=== PATIENT | male | born 1955 | race Caucasian/White ===

== ENCOUNTER 2016-11-13 02:29 | Inpatient (IN) | payer OTHER ==
[~2016-11-13] VITALS: Ht 190.5 cm; Wt 121.6 kg
[~2016-11-13 02:29] MED LIST: ADULT LOW DOSE81 MG PO; COQ-1030 MG PO; FERROUS SULFAT325 M3 PO; MOBIC15 M1 PO; SENOKOT8.6 M2 PO; TOPROL XL25 M1 PO
--- NOTE | 2016-11-13 16:20 | Admission Core Measures ---
Admission Meds I reviewed the following Meds: Current Medications Sig/Beata Start time Last Medication Dose Stop Time Status Admin Vancomycin HCl 1,000 MG ONCE 11/13 0000 NR Sodium Chloride 250 ML 11/139 (Normal Saline 0.9%) Acute Coronary Syndrome Inclusion Criteria ACS Diagnosis No Inpatient Core Measures LDL Reminder: If No, please order W/I first 24hr of stay Congestive Heart Failure Inclusion Criteria CHF Diagnosis No Cerebrovascular accident Inclusion Criteria CVA/TIA Diagnosis No Inpatient Core Measures Bedside Swallow Eval Reminder: If BSE failed, place ST order Antithrombotic Reminder: Order Antithrombotic Medication by end of day 2 Antithrombotic Reminder: Document Reason Antithrombotic Not ordered by end of day 2 AFIB/Flutter Reminder: If Present, add to problem list AFIB/Flutter Reminder: Order Anticoag Medication for pts with AFIB/Flutter Atherosclerosis Reminder: If Present, add to problem list LDL Reminder: If No, please order W/I first 24hr of stay PT Order Reminder: If No, please order Venous thromboembolism Inpatient Core Measures VTE Risk Factors: Age > 40, Surgery No [facility] VTE prophylaxis d/t No contraindications No VTE Pharm Prophylaxis d/t No contraindications Inclusion Criteria - Per Current guidelines, there needs to be overlap - treatment for the first 5 days of Warfarin therapy. - Parenteral Anticoagulation (IV or SC) needs to be - given along with Warfarin therapy. VTE Diagnosis No VTE Type NONE VTE Confirmed by (Test) NONE Problem List As ranked by this Provider includes Assessment & Plan 1. S/P total hip arthroplasty HOME MEDS Home Med List Aspirin (Adult Low Dose Aspirin EC) 81 MG TABLET.DR 1 PO D HEART iSpye ( Reported) Ferrous Sulfate 325 MG (65 MG IRON) TABLET 1 TAB PO BID SUPP (Reported) Meloxicam (Mobic) 15 MG TABLET 1 TAB PO DAILY PAIN (Reported) Metoprolol Succ XL (Toprol XL) 25 MG TAB 1 TAB PO DAILY BP (Reported) Sennosides (Senokot) 8.6 MG TABLET 1 TAB PO BID BM (Reported) Ubidecarenone (Coq-10) 30 MG CAPSULE 1 PO D SUPP (Reported)
--- NOTE | 2016-11-13 17:17 | RADIOLOGY REPORT ---
EXAMINATION: XR HIP, RIGHT CLINICAL INFORMATION: Status post right total hip replacement COMPARISON: None TECHNIQUE: Single view of the right hip. FINDINGS: Prosthetic components of the right total hip arthroplasty are appropriately aligned. No periprosthetic fracture. Gas from recent surgery is present in the surrounding soft tissues. IMPRESSION: Normal postoperative appearance of the right total hip prosthesis.
[2016-11-13 18:30] VITALS: BP 106/60
--- NOTE | 2016-11-13 20:08 | NUR ---
PT UP TO FLOOR AT 1815. PT DORWSY AROUSABLE. PAIN MILD PER PT. + CMS TO BLE . DRSG TO R HIP C/D/I. IVF INFUSING PER EMAChris. DAT TO BSD. CALL RODRIGUEZ USE INSTRUCTED. PT HR 52 PER REPORT PT HR RUNS ON LOW SIDE. PT CONFIRMED LOW HR ISSUES. WILL MONITOR
[2016-11-13 20:25] VITALS: BP 130/80
[2016-11-13 22:55] VITALS: BP 130/70
[2016-11-14 01:20] VITALS: BP 126/80
[2016-11-14 04:45] VITALS: BP 134/82
[2016-11-14 08:04] LABS: ABSOLUTE BASOPHIL COUNT 0 /CUMM (0.0-0.2); ABSOLUTE EOSINOPHIL COUNT 0.1 /CUMM (0.0-0.7); ABSOLUTE GRANULOCYTE CT 6.4 /CUMM (1.4-6.5); ABSOLUTE LYMPH COUNT 1.2 /CUMM (1.2-3.4); ABSOLUTE MONOCYTE COUNT 0.8 /CUMM (0.10-0.60); BASOPHIL % 0.4 % (0.0-2.0); EOSINOPHIL % 1.4 % (0-5); GRANULOCYTE % 74.6 % (42.2-75.2); HEMATOCRIT 34.8 % (42-52); MEAN CORPUSCULAR HGB 30.3 PG (27.0-31.0); MEAN CORPUSCULAR HGB CONC 33.7 G/DL (33.0-37.0); MEAN CORPUSCULAR VOLUME 89.9 FL (80.0-94.0); MEAN PLATELET VOLUME 8.5 FL (7.4-10.4); PLATELET COUNT 172 /CUMM (130-400); RBC DISTRIBUTION WIDTH 14.2 % (11.5-14.5); RED BLOOD CELL CT 3.87 /CUMM (4.70-6.10); WHITE BLOOD CELL COUNT 8.6 /CUMM (4.8-10.8)
--- NOTE | 2016-11-14 08:12 | PN- Orthopedic ---
See Addendum Subjective Subjective: Patient's preoperative right groin pain is gone, he has lateral hip pain which is moderate and complaints of back spasming and tightness mostly left lower back. He denies any fever or chills. No chest pain or shortness of breath. Objective Vital Signs and I&Os Vital Signs Date Time Temp Pulse Resp B/P B/P Pulse O2 O2 Flow FiO2 Mean Ox Delivery Rate 11/14 0445 98.1 60 16 134/82 98 Nasal 2.0L Cannula 11/14 0120 98.2 60 18 126/80 97 Nasal 2.0L Cannula 11/14 0000 Nasal 2.0L Cannula 11/13 2255 98.1 63 20 130/70 96 Room Air 11/13 2024 96.7 54 20 130/80 98 Nasal 3.0L Cannula 11/13 2000 Nasal 2.0L Cannula 11/13 1830 96.7 52 16 106/60 94 Nasal 2.0L Cannula Intake & Output 11/14 1600 11/14 0800 11/14 0000 11/13 1600 11/13 0800 11/13 0000 Intake Total 1000 550 Output Total 850 Balance 150 550 Intake, IV 800 450 Intake, Oral 200 100 Output, Urine 850 Patient 268 lb Weight Weight Reported by Patient Measurement Method Physical Exam: Well-developed well-nourished no apparent distress. HEENT: Atraumatic, extraocular motion intact Neck: Supple, no lymphadenopathy Respiratory: No respiratory distress Extremities: No edema RIGHT lower extremity hip dressing in place, Dressing clean dry and intact Mild thigh edema No signs of infection. No shortening or rotation Hip range of motion is limited and without unexpected pain. Abduction pillow in place Neurovascularly intact distally Bilateral calves are supple, nontender. Neuro: Alert and oriented x3 Psych: Mood affect normal, normal memory normal judgment. Skin: Warm and dry, no rash on exposed skin Results Last 48 Hours of Labs: Laboratory Tests 11/14 0650 Chemistry Sodium (137 - 145 mmol/L) 135 L Potassium (3.5 - 5.1 mmol/L) 4.0 Chloride (98 - 107 mmol/L) 104 Carbon Dioxide (22 - 30 mmol/L) 23 Anion Gap (5 - 16) 8 BUN (9 - 20 mg/dL) 10 Creatinine (0.7 - 1.2 mg/dL) 0.7 Estimated GFR (>60 ml/min) > 60 BUN/Creatinine Ratio (7 - 25 %) 14.3 Coagulation PT Pending INR Pending Hematology CBC w Diff Pending WBC Pending RBC Pending Hgb Pending Hct Pending MCV Pending MCH Pending RDW Pending Plt Count Pending MPV Pending PUBS MCHC Pending Assessment/Plan Assessment/Plan Postoperative day #1 status post right total hip arthroplasty Out of bed, weightbearing as tolerated w physical therapy. Perioperative antibiotics completed Continue pain medication as needed, add Robaxin for muscle spasm when necessary. Coumadin for DVT prophylaxis. Awaiting INR this morning, dose depending on INR. Goal:2-3 abduction pillow while in bed Following morning labs. ALPS Blair catheter removed this morning, await spontaneous voiding DC IV fluids Dressing change tomorrow Core Measures/Miscellaneous Venous Thromboembolism VTE Risk Factors: Age > 40, Surgery VTE Contraindications: No Contraindications VTE Diagnosis: No VTE Type: NONE VTE Confirmed by (Test): NONE Beta Viviana Is Beta Viviana a Home Med? No Antibiotics Is Patient on Antibiotics? No
[2016-11-14 08:49] LABS: PT 11.7 SEC (9.4-12.5)
[2016-11-14 09:10] VITALS: BP 122/86
[2016-11-14 12:20] VITALS: BP 136/70
[2016-11-14 16:05] VITALS: BP 132/80
--- NOTE | 2016-11-14 19:45 | Operative Report ---
Operative/Inv Procedure Report Surgery Date: 11/13/16 Name of Procedure: Right total hip arthroplasty Pre-Operative Diagnosis: Right hip primary osteoarthritis Post-Operative Diagnosis: Same Estimated Blood Loss: 200cc Surgeon/Enamel Buffer: GLADIS STARR,Karen CHAMBERLAIN Anesthesia: general endotracheal tube Implants: [place] secure fit femoral stem size 8, Trident acetabulum size 56, 36+0 femoral head Biolox Drains: None Specimens: Femoral head and acetabular reamings Microbiology: Urine Complications: None Condition: Stable Operative Indication: Patient is a 61-year-old man with severe end-stage osteoarthritis of the right hip. Hip causes significant compromise of his normal activities of daily living. He underwent conservative management for. At time but had minimal improvement. He wished to proceed with total hip arthroplasty after risks, benefits and expectations of surgical procedure which included but were not limited to persistent hip pain, need for subsequent surgery, infection, DVT, injury to blood vessel or nerve, leg length discrepancy, dislocation and anesthesia risks Operative/Procedure Note Note: Patient was brought to the operating room and transferred to the operating table. Once under appropriate anesthesia the patient was placed into a left lateral decubitus position with right side up. All bony prominences were well- padded. An axillary Roll was placed in standard fashion. The right lower extremity was prepped and draped in standard fashion. Preoperative IV antibiotic's were given prophylactically. A standard lateral incision was used for anticipated superior approach of the hip. Incision was taken down sharply to the underlying fascia. The fascia was incised in line with the skin incision. The hip was internally rotated placing the external rotators on tension. I then dissected the piriformis off of the insertion site and reflected posteriorly for later repair. The interval between the gluteus minimus tendon and the superior capsule was identified and a retractor was placed in this interval. Inferior retractor was placed as well. I then incised the capsule and reflected a central portion of the capsule posteriorly for later repair. Superior and inferior portions of the capsule were excised. Hip was dislocated. Measurements were taken between intertrochanteric line to the center the femoral head in order to reproduce patient's leg lengths. Femoral neck cut was made based on preoperative templating and intraoperative measurements. Femoral head was removed. There was severe degenerative changes of the femoral head and the articular cartilage. I then placed retractors along the anterior acetabulum as well as inferior acetabulum. Remnants of the degenerative labral tissues were excised. All remaining soft tissues in the acetabular fossa were removed. Copious irrigation followed. I then started reaming with a size 48 and reamed up to a size 55 for anticipated insertion of a size 56 acetabulum. I use a size 54 trial to confirm circumferential reaming. After copious irrigation I impacted the definitive size 56 acetabular component with the appropriate anteversion and abduction. I was satisfied with the scratch fit. I then placed 2 6.5 mm screws in the safe zone. After irrigating the acetabular fossa I placed the definitive liner to accept a 36 m femoral head. Locking mechanism was confirmed. I placed a lap sponge to protect the acetabular liner during preparation of the femur. Femur was then internally rotated 90 and forward flexed about 60. Retractors were placed underneath the proximal femur to deliver the femur out of the wound. I then use a ox osteotome to lateralize my insertion site. This was followed by hand reamers. I approached up to a size 8. I was satisfied with this size at this point. Excellent scratch fit. I did a closed reduction with a 36+0 femoral head. This restored patient's leg lengths and provided excellent stability. No evidence of anterior instability with simultaneous extension or external rotation. No evidence of posterior stability with simultaneous internal rotation adduction and forward flexion to 90. I then removed all the trial components. Copious irrigation of the femoral canal followed. I then impacted the definitive size 8 secure fit femoral stem in position matching the version of the previously placed and removed broach. The trunnion was dried and then a definitive 36+0 femoral head was impacted in place and the locking mechanism was confirmed. I used a Biolox femoral head. Hip was reduced and again the stability was confirmed. After copious irrigation and copious irrigation was followed every level of closure. The capsule piriformis were repaired. Fascia was closed with interrupted #1 Vicryl suture. Subcutaneous tissues closed in 2 layers with 2-0 Vicryl and skin was closed with rupal. Appropriate just his were applied and patient was awakened and taken to recovery room in good condition. No intraoperative complications. Blood loss approximately 200 mL Discharge Disposition: PACU
[2016-11-14 20:27] VITALS: BP 140/80
[2016-11-15 07:31] VITALS: BP 140/60
--- NOTE | 2016-11-15 08:00 | PN- Orthopedic ---
See Addendum Subjective Subjective: The patient seen this morning postoperatively day #2. He reports his pain is under adequate control and is complaints at the current time. Objective Vital Signs and I&Os Vital Signs Date Time Temp Pulse Resp B/P B/P Pulse O2 O2 Flow FiO2 Mean Ox Delivery Rate 11/15 0731 99.3 79 20 140/60 94 Room Air 11/14 2027 99.4 75 20 140/80 95 Room Air 11/14 1605 99.0 74 20 132/80 95 Room Air 11/14 1220 99.3 74 20 136/70 95 11/14 1050 Room Air Room Air 11/14 0910 99.4 73 20 122/86 95 11/14 0800 Nasal 2.0L Cannula Intake & Output 11/15 0800 11/15 0000 11/14 1600 11/14 0800 11/14 0000 11/13 1600 Intake Total 523 342 9246 550 Output Total 1675 760 800 850 Balance -1435 -760 -200 150 550 Intake, IV 800 450 Intake, Oral 240 600 200 100 Output, Urine 1675 760 800 850 Patient 268 lb Weight Weight Reported by Patient Measurement Method Physical Exam: Gen.: Alert and in no obvious distress Skin: Warm and dry Extremities: Bilateral lower extremities are warm without calf tenderness or significant edema. Gross motor and sensory are intact. Right hip surgical dressing was changed and incision was clean, dry, and intact without signs of infection. Surgical clips were in place. Assessment/Plan Assessment/Plan Assessment: 61-year-old male status post right total hip otoplasty postoperative day #2. The patient is progressing as expected and his pain is under adequate control. Plan: Out of bed with physical therapy Follow-up morning laboratory studies and dose Coumadin for an INR between 2 and 3 Continue current pain regiment Daily dry dressing change GI and DVT prophylaxis Incentive spirometry Probable discharge tomorrow Core Measures/Miscellaneous Venous Thromboembolism VTE Risk Factors: Age > 40, Surgery VTE Contraindications: No Contraindications VTE Diagnosis: No VTE Type: NONE VTE Confirmed by (Test): NONE Beta Viviana Is Beta Viviana a Home Med? No Antibiotics Is Patient on Antibiotics? No
[2016-11-15 08:09] LABS: ABSOLUTE BASOPHIL COUNT 0 /CUMM (0.0-0.2); ABSOLUTE EOSINOPHIL COUNT 0.1 /CUMM (0.0-0.7); ABSOLUTE GRANULOCYTE CT 6.5 /CUMM (1.4-6.5); ABSOLUTE LYMPH COUNT 1.4 /CUMM (1.2-3.4); ABSOLUTE MONOCYTE COUNT 1.2 /CUMM (0.10-0.60); BASOPHIL % 0.4 % (0.0-2.0); EOSINOPHIL % 1.6 % (0-5); GRANULOCYTE % 70.2 % (42.2-75.2); HEMATOCRIT 33.4 % (42-52); MEAN CORPUSCULAR HGB 30.2 PG (27.0-31.0); MEAN CORPUSCULAR HGB CONC 33.9 G/DL (33.0-37.0); MEAN PLATELET VOLUME 8.9 FL (7.4-10.4); PLATELET COUNT 163 /CUMM (130-400); RBC DISTRIBUTION WIDTH 13.7 % (11.5-14.5); RED BLOOD CELL CT 3.75 /CUMM (4.70-6.10); WHITE BLOOD CELL COUNT 9.2 /CUMM (4.8-10.8)
[2016-11-15 08:15] LABS: PT 14.9 SEC (9.4-12.5)
--- NOTE | 2016-11-15 13:46 | NUR ---
PT C/O WORSENING BLE EDEMA, PT STATES HE CANT WORK WITH PT , IT HURTS TO WALK ON THEM, PA PARI PAYNE, PA TO COME SEE PT
[2016-11-15 14:00] VITALS: BP 150/76
--- NOTE | 2016-11-15 14:00 | NUR ---
PT C/O PAIN IN BLE, PT REFUSE PAIN MEDS, CONTINUE TO MONITOR, KVNG YAÑEZ CALLED AGAIN TO SEE PT
--- NOTE | 2016-11-15 15:00 | NUR ---
[facility] COMMISSION CLERK AT BEDSIDE PER PT'S REQUEST, CONCERNED PT WILL HAVE TO GO TO [facility], IF PT NOT SEEN BY PHYSICAL THERAPY TODAY TO WALK PT LEAVES BY 1529, WANTS HIM SEEN LATER TODAY. IV LASIX GIVEN PER PA
--- NOTE | 2016-11-15 22:25 | NUR ---
ORAL TEMP AT THIS TIME 100.0 CALL PLACED TO SURGICAL PA TO MAKE AWARE
[2016-11-15 22:40] VITALS: BP 140/64
[2016-11-16 06:07] VITALS: BP 134/70
[2016-11-16 08:13] LABS: ABSOLUTE BASOPHIL COUNT 0 /CUMM (0.0-0.2); ABSOLUTE EOSINOPHIL COUNT 0.1 /CUMM (0.0-0.7); ABSOLUTE GRANULOCYTE CT 7.6 /CUMM (1.4-6.5); ABSOLUTE LYMPH COUNT 1.3 /CUMM (1.2-3.4); ABSOLUTE MONOCYTE COUNT 1.3 /CUMM (0.10-0.60); BASOPHIL % 0.5 % (0.0-2.0); GRANULOCYTE % 73.2 % (42.2-75.2); HEMATOCRIT 33.2 % (42-52); MEAN CORPUSCULAR HGB 30.5 PG (27.0-31.0); MEAN CORPUSCULAR HGB CONC 33.8 G/DL (33.0-37.0); MEAN CORPUSCULAR VOLUME 90.3 FL (80.0-94.0); PLATELET COUNT 160 /CUMM (130-400); RED BLOOD CELL CT 3.67 /CUMM (4.70-6.10); WHITE BLOOD CELL COUNT 10.4 /CUMM (4.8-10.8)
[2016-11-16 08:14] LABS: PT 15.5 SEC (9.4-12.5)
--- NOTE | 2016-11-16 08:44 | PN- Orthopedic ---
Subjective Subjective: Patient reporting improvement in discomfort to bilateral feet/ankles since starting mobic. States that he feels is toe range of motion is markedly improved but notes some residual discomfort when ranging bilateral ankles. States that incisional discomfort is minimal. Denies chest pain, shortness of breath and difficulty breathing. Has been voiding. Has been tolerating diet with no nausea or vomitting. Has yet to ambulate on stairs with pt, anticipates that today. Objective Vital Signs and I&Os Vital Signs Date Time Temp Pulse Resp B/P B/P Pulse O2 O2 Flow FiO2 Mean Ox Delivery Rate 11/16 0607 99.6 79 20 134/70 93 Room Air 11/15 2240 100.0 78 20 140/64 95 Room Air 11/15 1400 99.8 74 20 150/76 95 Room Air Intake & Output 11/16 1600 11/16 0800 11/16 0000 11/15 1600 11/15 0800 11/15 0000 Intake Total 600 240 Output Total 1180 310 847 0638 760 Balance -1180 -380 -350 -1435 -760 Intake, Oral 600 240 Output, Urine 1180 378 747 5000 760 Physical Exam: General: Alert and oriented x3, no acute distress Cardiac: RRR, s1s2 Pulm: C T A bilaterally Abdomen: Obese, non-tender, non-distended Extremties: Moves all extremities, resistant to ankle ROM to bilateral lower extremities but able to plantar and dorsiflex toes bilaterally. Tender to palpation of metatarsal heads bilaterally and calcaneous on left lower extremities, no redness or excessive warmth, swelling noted but no pitting edema. Bialteral calves soft and non-tender. Surgical site: Right hip: Dressing dry and intact, thigh compartments soft. No resting internal or external rotation of right leg. Assessment/Plan Assessment/Plan This is a 61 year old male, POD 3, s/p right thr for osteoarthrits. Meloxicam started one day ago for foot and ankle swelling/pain with good effect. PMH significant for cabg, gout -PT to eval today, trial stairs, str vs home -Probable dc later this afternoon -Contiue current pain regimen -Continue dvt ppx with coumadin, dose per inr, target inr 2-3 -Continue meloxicam, 7.5 daily -Will d/w Dr. Barnes Core Measures/Miscellaneous Venous Thromboembolism VTE Risk Factors: Age > 40, Surgery VTE Contraindications: No Contraindications VTE Diagnosis: No VTE Type: NONE VTE Confirmed by (Test): NONE Beta Viviana Is Beta Viviana a Home Med? No Antibiotics Is Patient on Antibiotics? No
--- NOTE | 2016-11-16 10:53 | Patient Discharge Instructions ---
Discharge Instructions General Discharge Information You were seen/treated for: Right hip pain related to osteoarthritis You had these procedures: Right total hip replacement Watch for these problems: Increasing pain despite the use of pain medication Increasing redness, warmth, swelling. Drainage of any type from incision. Inability to bear weight on right leg. Persistent nausea and vomitting. Fever greater than 101.5 degrees. Do not soak the wound: Yes No bath, but you may shower: Yes Other wound care: Keep wound clean and dry Daily dry dressing changes recommended Special Instructions: Coumadin: Another name for this medication is Warfarin. The purpose of this medication is to offer protection against the development of blood clots. The dose of this medication is subject to change daily. It is based on labwork called INR. Your INR will be tested at a minimum of two times per week. The results of your blood work will be reported to your Dr. Please obtain instructions from Dr. Barnes office prior to taking this medication to assure that you are taking the appropriate dose. There is a possiblity that your required dose will be more or less than 5 mg per day. Posterior hip precautions: THere are specific positions to avoid in order to protect the hip from dislocation. Do not do the following: -Bend at waist greater than 90 degrees -Cross your legs -Bend your leg at the waist and internally rotate your leg Diet Continue normal diet: Yes Recommended Diet: Regular Additional DIET Information: Advance as tolerated Activity Full Activity/No Limits: No Activity Self Limited: Yes Pounds, do NOT lift more than: 10 Activity Limited to: Weight bear as tolerated Acute Coronary Syndrome Inclusion Criteria At DC or during hospital stay patient has or had the following: ACS DIAGNOSIS No Discharge Core Measures Meds if any: Prescribed or Continued at Discharge Meds if any: NOT Prescribed or Continued at Discharge Congestive Heart Failure Inclusion Criteria At DC or during hospital stay patient has or had the following: CHF DIAGNOSIS No Discharge Core Measures Meds if any: Prescribed or Continued at Discharge Meds if any: NOT Prescribed or Continued at Discharge Cerebrovascular accident Inclusion Criteria At DC or during hospital stay patient has or had the following: CVA/TIA Diagnosis No Discharge Core Measures Meds if any: Prescribed or Continued at Discharge Meds if any: NOT Prescribed or Continued at Discharge Venous thromboembolism Inclusion Criteria VTE Diagnosis No VTE Type NONE VTE Confirmed by (Test) NONE Discharge Core Measures - Per Current guidelines, there needs to be overlap - treatment for the first 5 days of Warfarin therapy. - If discharged on Warfarin prior to 5 days of - overlap therapy, the patient will need to be - assessed for post discharge needs including - *Post discharge parental anticoagulation - *Warfarin and/or parental anticoagulation education - *Follow up date to check INR post discharge At least 5 days overlap therapy as Inpatient No Meds if any: Prescribed or Continued at Discharge Note: Overlap Therapy is Warfarin and Anticoagulant Meds if any: NOT Prescribed or Continued at Discharge
--- NOTE | 2016-11-16 10:56 | Surgical Discharge Summary ---
Visit Information Visit Dates Admission Date: 11/13/16 Discharge Date: 11/16 History of Present Illness Chief Complaint: Right hip pain secondary to unilateral primary osteoarthritis Medical History Blood Transfusion Hx: No Neurological: NONE EENT: NONE Cardiovascular: CAD, hypertension Respiratory: NONE Gastrointestinal: NONE Hepatic: NONE Renal: NONE Musculoskeletal: degen joint disease, gout, osteoarthritis Psychiatric: NONE Endocrine: NONE Blood Disorders: NONE Cancer(s): NONE MATHS TUTOR/Reproductive: NONE History of MRSA: No History of VRE: No History of CDIFF: No Isolation History: Standard Surgical History Pertinent Surgical History: CABG, HERNIA REPAIR Psychosocial History Where Do You Live? Home Who Do You Live With? Spouse Services at Home: None What is Your Primary Language? Swedish Review of Systems: See H&P Hospital Course Course Attending Physician: GLADIS STARR,BULMARO Primary Care Physician: LORENZO BAR MD Hospital Course: Juan was admitted to the hospital on 11/13/2016 for an elective right total hip replacement. He tolerated the procedure well and was transferred to a general surgical floor. His vital signs were stable and within normal limits and his neurovascular status remained intact. His diet was advanced and tolerated and he was voiding spontaneously. His pain was controlled with po pain medication and he was evaluated and treated by physical therapy. He was deemed appropriate for discharge. Allergies: Coded Allergies: Sulfa (Sulfonamide Antibiotics) (SWELLING 11/03/16) Disposition Summary Disposition Principal Diagnosis: Right hip unilateral primary osteoarthritis Additional Diagnosis: none Discharge Disposition: home health services Discharge Instructions General Discharge Information Code Status: Full Code Patient's Diet: Regular, advance as tolerated Patient's Activity: WBAT Follow-Up Instructions/Appts: Follow up with Dr. Barnes in two weeks from date of surgery Medications at Discharge Discharge Medications: Stop taking the following medications: Ubidecarenone (Coq-10) 30 MG CAPSULE ORAL Every Day Aspirin (Adult Low Dose Aspirin EC) 81 MG TABLET. ORAL Every Day Meloxicam (Mobic) 15 MG TABLET ORAL DAILY Continue taking these medications: Metoprolol Succ XL (Toprol XL) 25 MG TAB 1 Tablet ORAL DAILY Comments: Last Taken: 11/16/16 Time: 9AM Ferrous Sulfate (Ferrous Sulfate) 325 MG (65 MG IRON) TABLET 1 Tablet ORAL TWICE DAILY Comments: NOT GIVEN WHILE IN HOSPITAL Sennosides (Senokot) 8.6 MG TABLET 1 Tablet ORAL TWICE DAILY Comments: Last Taken: 11/15/16 Time: 10PM Start taking the following new medications: Hydromorphone HCl (Dilaudid) 2 MG TABLET 1-2 Tablet ORAL EVERY 4-6 HOURS as needed for PAIN Qty = 36 No Refills Comments: Last Taken: 11/16/16 Time: 10AM Warfarin Sodium (Coumadin) 5 MG TABLET 1 Tablet ORAL DAILY Qty = 30 No Refills Instructions: dose may change daily per INR, await daily dose instruction prior to taking Comments: Last Taken: 11/16/16 Time: 3PM Meloxicam (Mobic) 7.5 MG TABLET 1 Tablet ORAL DAILY Qty = 30 No Refills Comments: Last Taken: 11/16/16 Time: 9AM
[2016-11-16] MEDS ORDERED: MOBIC7.5 M1 PO (14:41)
[2016-11-16] MEDS ORDERED: COUMADIN5 M2 PO (14:41)
[2016-11-16] MEDS ORDERED: DILAUDID2 M1 PO (14:41)
[2016-11-16 14:53] VITALS: BP 150/80
== END 2016-11-16 15:20 | disposition home health service (06) | DRG 470 ==
LOC: SDA 02:29 → ENRESERV 17:21 → 2NA 18:16 → ENPENDDIS 11-16 14:55 → 2NA 11-16 15:20
PROVIDERS: Physician Assistant; Physician Assistant Surgical; ADMIT Orthopaedic Surgery
PROC: 0SR904A Replacement of Right Hip Joint with Ceramic on Polyethylene Synthetic Substitute, Uncemented, Open Approach (ICD-10-PCS; principal; 2016-11-13)
DX: M16.11 Unilateral primary osteoarthritis, right hip (principal); I10 Essential (primary) hypertension; I25.10 Atherosclerotic heart disease of native coronary artery without angina pectoris; E78.5 Hyperlipidemia, unspecified; M79.89 Other specified soft tissue disorders; M79.672 Pain in left foot; M79.671 Pain in right foot; M10.9 Gout, unspecified; Z95.1 Presence of aortocoronary bypass graft
CPT/HCPCS: 2NASP; 36415; 73501; 82436; 87086; 88304; 97110-GO; 97116-GO; 97161-GP; 97165-GO; 97530-GO; J0131; J1885; J1940; J2405; J2550; J3370; J7040; J7042